=== PATIENT | male | born 1995 | race Caucasian/White ===

== ENCOUNTER 2017-06-16 13:32 | Emergency (ER) | payer BC ==
[2017-06-16 13:41] VITALS: TEMP 98.2
--- NOTE | 2017-06-16 13:58 | EDPHY ---
H & P Stated Complaint: rolled l ankle playing basketball Time Seen by Provider: 06/16/17 13:57 HPI/ROS: HPI: This is a 21-year-old male who presents with Chief Complaint: rolled l ankle playing basketball Location: Left ankle Quality: Injury Duration: Last Signs and Symptoms: No bleeding, no radiation, no numbness, no weakness, no tingling, no incontinence, no decreased range of motion, + swelling, + pain Timing: Acute Severity: [id number] Context: Patient everted his ankle while playing basketball yesterday evening. He felt pain but did not hear a pop. The pain was described as mild-to- moderate but quickly resolved. He was able to finish his pickup basketball game without difficulty. He went home after the game yesterday evening applied ice. He woke up this morning and noticed the lateral aspect of his ankle was swollen. He was able to go to school today and walk around with some mild discomfort with weight-bearing. Denies paresthesias/skin color changes/ weakness. Patient does not have a history of ankle sprains. Modifying Factors: Ice times 2 times with mild relief Comment: ROS: see HPI Constitutional: No fever, no chills, no weight loss Eyes: No blurred vision Respiratory: No shortness of breath, no cough Cardiovascular: No chest pain Gastrointestinal: No nausea, no vomiting no diarrhea Genitourinary: No dysuria Extremities: No myalgias Neurologic: No weakness, no numbness Skin: No rashes Hematologic: No bruising, no bleeding MEDICAL/SURGICAL/SOCIAL HISTORY: Medical history: Generally healthy. Does not take any regular medications. Surgical history: Dental Social history: Student. CONSTITUTIONAL: Well-developed well-nourished young adult male, awake and alert , no obvious distress HEENT: Atraumatic and normocephalic, PERRL, EOMI. Tympanic membranes clear. Oropharynx clear, no exudate and moist pink mucosa. Airway patent. No lymphadenopathy. No meningismus. Cardiovascular: Normal S1/S2, regular rate, regular rhythm, without murmur rub or gallop. PULMONARY/CHEST: Symmetrical and nontender. Clear to auscultation bilaterally. Good air movement. No accessory muscle usage. ABDOMEN: Soft, nondistended, nontender, no rebound, no guarding, no peritoneal signs, no masses or organomegaly. No CVAT. EXTREMITIES: 2/2 DP and PT pulses, strength 5/5, left Ankle: Plantar flexion to 50, dorsiflexion to 20. Foot inversion to 35 degree. Moderate swelling over the lateral malleolus. No tenderness/swelling Anterior talofibular ligament. Mild tenderness/swelling Calcaneofibular ligament, mild tenderness/ swelling posterior talofibular ligament, no tenderness/swelling posterior inferior tibiofibular ligament. Achilles tendon intact. no deformities, no clubbing, no cyanosis or edema. NEUROLOGICAL: no focal neuro deficits. GCS 15. SKIN: Warm and dry, no erythema. no rash. Good capillary refill. Source: Patient Exam Limitations: No limitations - Personal History Current Tetanus/Diphtheria Vaccine: Unsure - Medical/Surgical History Hx Asthma: No Hx Chronic Respiratory Disease: No Hx Diabetes: No Hx Cardiac Disease: No Hx Renal Disease: No Hx Cirrhosis: No Hx Alcoholism: No Hx HIV/AIDS: No Hx Splenectomy or Spleen Trauma: No Other PMH: dental surgery - Social History Smoking Status: Never smoked Constitutional: Initial Vital Signs Temperature (C) 36.8 C 06/16/17 13:40 Heart Rate 73 06/16/17 13:40 Respiratory Rate 17 06/16/17 13:40 Blood Pressure 132/90 H 06/16/17 13:40 O2 Sat (%) 97 06/16/17 13:40 O2 Delivery Mode Room Air Allergies/Adverse Reactions: No Known Allergies Allergy (Unverified 06/16/17 13:37) Home Medications: Medication Instructions Recorded NK [No Known Home Meds] 06/16/17 Medical Decision Making - Diagnostics Imaging Results: Imaging Impressions Ankle X-Ray 06/16/17 13:42 Impression: Lateral malleolar avulsion fracture, with pronounced soft tissue swelling. ED Course/Re-evaluation: X-rays show soft tissue swelling on the lateral aspect; spoke very small lateral avulsion fracture Placed in walking boot. Patient states he has crutches at home. Advised rice therapy, Ortho follow-up No signs of neurovascular compromise/tenting of skin/compartment syndrome/ extremities and joints examined above and below area of concern and are neurovascularly intact. This patient was seen under the supervision of my primary supervising physician. I evaluated care for this patient independently. Differential Diagnosis: Differential diagnosis includes but is not limited to nerve injury, ligament injury, contusion, tibia fracture, fibula fracture. Departure - Departure Disposition: Home, Routine, Self-Care Clinical Impression: Grade 2 ankle sprain Qualifiers: Encounter type: initial encounter Laterality: left Qualified Code(s): S93.402A - Sprain of unspecified ligament of left ankle, initial encounter Avulsion fracture of left ankle Qualifiers: Encounter type: initial encounter Fracture type: closed Qualified Code(s): S82.892A - Other fracture of left lower leg, initial encounter for closed fracture Condition: Good Instructions: Ankle Sprain (DC) Additional Instructions: Wear the walking boot while out of bed until pain free or seen by Orthopedics. Use crutches to aid ambulation. Start with toe-touch weight-bearing and slowly advance as tolerated. Take Tylenol 650 mg every 4 hours and/or Ibuprofen 600 mg every 8 hours with food as needed for pain. Apply ice for 30 minutes at a time; 2-3 times per day for the next 1-2 days. Follow up with Orthopedics in 7-10 days if symptoms persist or worsen at which time they will evaluate and recommend with you if conservative management versus adjuvant therapy is indicated. The x-rays obtained in the emergency department today demonstrate very small Lateral avulsion fracture, with pronounced soft tissue swelling. Referrals: Diony Jenkins MD [Medical Doctor] - As per Instructions
[2017-06-16 14:57] VITALS: BP 149/104; PULSE 76; RESP 14; O2SAT 96
== END 2017-06-16 14:47 | disposition home or self-care (01) ==
DX: S82.892A Other fracture of left lower leg, initial encounter for closed fracture (principal); S93.402A Sprain of unspecified ligament of left ankle, initial encounter; X50.9XXA Other and unspecified overexertion or strenuous movements or postures, initial encounter; Y99.8 Other external cause status; Y93.67 Activity, basketball
CPT/HCPCS: L4386